=== PATIENT | male | born 1955 | race Caucasian/White ===

== ENCOUNTER → 2019-11-13 13:30 | Outpatient (CLI) | payer OTHER, SELFPAY ==
[2019-11-13 13:47] LABS: Basophils # 0.2 K/mm3 (0-0.2); Basophils % 2.8 % (0.1-2.0); Eosinophils # 0.2 K/mm3 (0.0-0.4); Hematocrit 47.4 % (42.0-52.0); Hemoglobin 14.6 g/dL (14.1-18.0); Lymphocytes # 1.7 K/mm3 (0.7-4.5); Lymphocytes % 24.6 % (10-50); Mean Corpuscular HGB Conc 30.9 g/dL (31.8-35.4); Mean Corpuscular Hemoglobin 30.1 pg (27.0-31.2); Mean Corpuscular Volume 97.6 fl (80-94); Mean Platelet Volume 11.6 fl (7.4-10.4); Monocytes # 0.4 K/mm3 (0.1-1.0); Monocytes % 6.2 % (1.7-9.3); Neutrophils # 4.7 K/mm3 (1.8-7.8); Neutrophils % 66.3 % (37.0-80.0); Platelet Count 259 K/mm3 (142-424); Red Blood Count 4.85 M/mm3 (4.60-6.20); Red Cell Distribution Width 17.6 % (11.5-17.5); White Blood Count 7.1 K/mm3 (4.8-10.8)
[2019-11-13 13:58] LABS: Chloride 100 mmol/L (98-107); Potassium 4.8 mmoL/L (3.5-5.1); Sodium 138 mmol/L (136-145)
[2019-11-13 14:00] LABS: Blood Urea Nitrogen 21 mg/dl (9-20); Estimated Glomerular Filt Rate 85 ml/min (>60); GFR (African American) 103 ML/MIN (>60)
[2019-11-13 14:01] LABS: Alanine Aminotransferase 17 U/L (12-78); Albumin Level 4.3 g/dl (3.5-5.0); Albumin/Globulin Ratio 1.2 (1.1-1.8); Alkaline Phosphatase 50 U/L (38-126); Anion Gap 11.8 mEq/L (5-15); Aspartate Amino Transferase 27 U/L (17-59); Bilirubin,Total 0.5 mg/dl (0.2-1.3); Calcium 9.9 mg/dl (8.4-10.2); Carbon Dioxide 31 mmol/L (22.0-30.0); Chol/HDL Ratio 5.1 (1-3.5); Cholesterol 246 mg/dl (140-200); Globulin 3.6 g/dL (1.3-3.2); Glucose 107 mg/dl (74-100); HDL Cholesterol 48 mg/dl (40-60); Total Protein,Serum 7.9 g/dl (6.3-8.2); Triglycerides 120 mg/dl (30-150); VLDL Cholesterol 24 mg/dL (0-40)
[2019-11-13 14:08] LABS: Microscopic, Urine URINE MICROSCOPIC (MICROSCOPIC)
[2019-11-13 14:18] LABS: 25-OH Vitamin D, Total 30.5 ng/mL (30-100)
[2019-11-13 14:19] LABS: Free T4 (Free Thyroxine) 0.96 ng/dl (0.78-2.19)
[2019-11-13 15:30] LABS: Appearance,Urine CLEAR (Clear); Bilirubin,Urine Negative (Negative); Blood, Urine Negative (Negative); Color,Urine YELLOW (Yellow); Glucose,Urine (UA) Negative (Negative); Ketones,Urine Negative (Negative); Leukocyte Esterase,Urine Negative (Negative); Nitrate,Urine Negative (Negative); Protein,Urine Negative (Negative); Specific Gravity, Urine 1.025 (1.005-1.030); Urobilinogen,Urine 0.2 EU/dl (0.2)
[2019-11-13 15:59] LABS: WBC,Urine Occasional #/hpf (0-3)
[2019-11-13 16:00] LABS: Bacteria,Urine Trace /lpf; Squamous Epithelial Cell,Urine Occasional #/hpf (0-5)
[2019-11-15 12:04] LABS: Hep A Ab, IgM Negative (Negative); Hep A Ab, Total Negative (Negative); Hep B Core Ab, Total Negative (Negative); Rapid Plasma Reagin Ab Titer Non Reactive (NonRea<1:1)
[2019-11-15 12:41] LABS: HIV Screen 4th Generation wRfx Non Reactive (Non Reactive); Hep B Surface Ab, Qual Non Reactive (.); Hepatitis B Surface Antigen Negative (Negative); Hepatitis C Antibody 0.1 s/co ratio (0.0-0.9)
== END ==
PROVIDERS: Visit Provider Emergency Medicine
DX: B19.20 Unspecified viral hepatitis C without hepatic coma (principal); R53.83 Other fatigue; E55.9 Vitamin D deficiency, unspecified
CPT/HCPCS: 80053; 80061; 81001; 82306; 84439; 84443; 85025; 86592; 86703; 86704; 86706; 86708; 87340; 87380; G0432

== ENCOUNTER → 2020-11-24 13:22 | Outpatient (CLI) | payer MEDICARE, SELFPAY ==
[2020-11-24 13:45] LABS: Basophils # 0.1 K/mm3 (0-0.2); Basophils % 0.8 % (0.1-2.0); Eosinophils # 0.3 K/mm3 (0.0-0.4); Eosinophils % 5.4 % (0.1-12.0); Hematocrit 41.5 % (42.0-52.0); Hemoglobin 13.8 g/dL (14.1-18.0); Lymphocytes # 1.4 K/mm3 (0.7-4.5); Lymphocytes % 23.5 % (10-50); Mean Corpuscular HGB Conc 33.3 g/dL (31.8-35.4); Mean Corpuscular Hemoglobin 30.3 pg (27.0-31.2); Mean Corpuscular Volume 91.1 fl (80-94); Mean Platelet Volume 8.4 fl (7.4-10.4); Monocytes # 0.4 K/mm3 (0.1-1.0); Monocytes % 7.6 % (1.7-9.3); Neutrophils # 3.7 K/mm3 (1.8-7.8); Neutrophils % 62.7 % (37.0-80.0); Platelet Count 235 K/mm3 (142-424); Red Blood Count 4.55 M/mm3 (4.60-6.20); White Blood Count 5.8 K/mm3 (4.8-10.8)
[2020-11-24 14:01] LABS: Alanine Aminotransferase 16 U/L (12-78); Albumin Level 4.1 g/dl (3.5-5.0); Albumin/Globulin Ratio 1.3 (1.1-1.8); Alkaline Phosphatase 48 U/L (38-126); Anion Gap 12.3 mEq/L (5-15); Aspartate Amino Transferase 25 U/L (17-59); Bilirubin,Total 0.7 mg/dl (0.2-1.3); Blood Urea Nitrogen 19 mg/dl (9-20); Calcium 9.2 mg/dl (8.4-10.2); Carbon Dioxide 28 mmol/L (22.0-30.0); Chloride 103 mmol/L (98-107); Chol/HDL Ratio 2.9 (1-3.5); Cholesterol 142 mg/dl (140-200); Estimated Glomerular Filt Rate 97 ml/min (>60); GFR (African American) 117 ML/MIN (>60); Globulin 3.1 g/dL (1.3-3.2); Glucose 118 mg/dl (74-100); HDL Cholesterol 49 mg/dl (40-60); Potassium 4.3 mmoL/L (3.5-5.1); Sodium 139 mmol/L (136-145); Total Protein,Serum 7.2 g/dl (6.3-8.2); Triglycerides 53 mg/dl (30-150); VLDL Cholesterol 11 mg/dL (0-40)
[2020-11-24 14:12] LABS: Direct LDL Cholesterol 75.48 mg/dL (100-129)
[2020-11-24 14:17] LABS: T4 (Thyroxine) 6.5 ug/dl (5.53-11.0)
[2020-11-24 14:30] LABS: Prostate Specific Ag Screen 1.3 ng/ml (0.0-4.0)
[2020-11-24 15:06] LABS: Erythrocyte Sedimentation Rate 18 mm/hr (0-20)
== END ==
PROVIDERS: Visit Provider Emergency Medicine
DX: E78.5 Hyperlipidemia, unspecified (principal); K40.90 Unilateral inguinal hernia, without obstruction or gangrene, not specified as recurrent; Z12.5 Encounter for screening for malignant neoplasm of prostate
CPT/HCPCS: 80053; 80061; 84436; 84443; 85025; 85651; G0103

== ENCOUNTER → 2020-12-30 11:12 | Outpatient (CLI) | payer MEDICARE, SELFPAY ==
[2020-12-30 11:38] LABS: Microscopic, Urine URINE MICROSCOPIC (MICROSCOPIC)
--- NOTE | 2020-12-30 12:00 | ECG_ITS ---
APPROVED REPORT Exam: Resting ECG HR:62 bpm ECG Measurements Heart Rate 62 AXES AR 146 P 70 QRSd 82 QRS 40 QT 390 T 72 QTc 395 Conclusion Normal sinus rhythm with sinus arrhythmia Normal ECG Electronically signed by : Bharath Joshi MD 01/01/2021 12:07:15
[2020-12-30 12:26] LABS: Chloride 102 mmol/L (98-107); Sodium 140 mmol/L (136-145)
[2020-12-30 12:27] LABS: Potassium 4.8 mmoL/L (3.5-5.1)
[2020-12-30 12:30] LABS: Anion Gap 10.8 mEq/L (5-15); Blood Urea Nitrogen 25 mg/dl (9-20); Calcium 9.4 mg/dl (8.4-10.2); Carbon Dioxide 32 mmol/L (22.0-30.0); Estimated Glomerular Filt Rate 97 ml/min (>60); GFR (African American) 117 ML/MIN (>60); Glucose 96 mg/dl (74-100)
[2020-12-30 13:14] LABS: Basophils % 0.5 % (0.1-2.0); Eosinophils # 0.2 K/mm3 (0.0-0.4); Eosinophils % 3.3 % (0.1-12.0); Hematocrit 41.9 % (42.0-52.0); Hemoglobin 13.9 g/dL (14.1-18.0); Lymphocytes # 1.5 K/mm3 (0.7-4.5); Lymphocytes % 22.7 % (10-50); Mean Corpuscular HGB Conc 33.1 g/dL (31.8-35.4); Mean Corpuscular Hemoglobin 29.7 pg (27.0-31.2); Mean Corpuscular Volume 89.6 fl (80-94); Mean Platelet Volume 8.1 fl (7.4-10.4); Monocytes # 0.5 K/mm3 (0.1-1.0); Monocytes % 6.8 % (1.7-9.3); Neutrophils # 4.4 K/mm3 (1.8-7.8); Neutrophils % 66.7 % (37.0-80.0); Platelet Count 222 K/mm3 (142-424); Red Blood Count 4.67 M/mm3 (4.60-6.20); Red Cell Distribution Width 13.1 % (11.5-17.5); White Blood Count 6.5 K/mm3 (4.8-10.8)
[2020-12-30 14:38] LABS: Appearance,Urine CLEAR (Clear); Bilirubin,Urine Negative (Negative); Blood, Urine Negative (Negative); Color,Urine YELLOW (Yellow); Glucose,Urine (UA) Negative (Negative); Ketones,Urine Negative (Negative); Leukocyte Esterase,Urine Negative (Negative); Nitrate,Urine Negative (Negative); Protein,Urine Negative (Negative); Urobilinogen,Urine 0.2 EU/dl (0.2)
[2020-12-30 14:57] LABS: Bacteria,Urine Trace /lpf
== END ==
PROVIDERS: PCP Emergency Medicine; Visit Provider Surgery
DX: K40.90 Unilateral inguinal hernia, without obstruction or gangrene, not specified as recurrent (principal); Z01.812 Encounter for preprocedural laboratory examination; Z20.822 Contact with and (suspected) exposure to COVID-19
CPT/HCPCS: 36415; 80048; 81001; 85025; 93005; U0003

== ENCOUNTER 2021-01-01 06:02 | Day surgery (SDC) | payer MEDICARE, SELFPAY ==
[2021-01-01] VITALS (12 sets, daily range): BP systolic 111–147; BP diastolic 73–87; PULSE 65–97; RESP 16–20; TEMP 36.1–43; O2SAT 97–100; BMI 20.7
--- NOTE | 2021-01-01 08:18 | HMH.ANESCL ---
[facility] Anesthesia Checklist - Structural Data Admitted From: Home Planned Operative Procedure/s: r inguinal hernia repair Consent for Planned Operative Procedure(s) Verified: Yes - Additional verifications Anesthesia Reactions: No Hx Blood Transfusions: No Blood Transfusion Reaction: No - Airway Assessment C-Spine Mobility Assessed: Yes TMJ Mobility Assessed: Yes Dentition: Poor Dentition - Neurological Assessment Level of Consciousness: Awake, Alert, Appropriate - Anesthesia Plan Anesthesia Risk discussed: Yes Anesthesia Plan: Verified ASA Class: II Anesthesia Type: General [facility] History I have reviewed the patient's past medical history: Yes Medical History: Reports:: Hyperlipidemia Denies:: Cancer, Diabetes Mellitus Type 1, Diabetes Mellitus Type 2, Internal Pacemaker, MRSA, Seizures *Have you ever received a pneumonia vaccine?: No *Have you received a flu vaccine this season?: No Other Medical History: Denies: Blood Transfusion Reaction Anesthesia experience/problems:: none Other Surgeries: Yes: No Previous Surgery. No: Pacemaker Amputation: No Fractures: No - *Social History Last grade of school completed: Advanced degree Smoking Status: Never smoker Alcohol Intake: never Substance Use Type: denies use *Occupational Status:: retired Housing: house *Travel in the last 8 weeks: None Family Hx:: Diabetes, Stroke
--- NOTE | 2021-01-01 08:46 | HMH.OPNOTE ---
Date of procedure: 01/01/21 Pre-op Diagnosis:: Right inguinal hernia Post-op Diagnosis:: Same Procedure performed:: Open right inguinal hernia repair Surgeon:: Maximino Weber MD CUSTOMER SERVICE AGENT:: Bry Schuler Anesthesia: LMA Estimated blood loss (mL): 15 Operative findings:: Large complex direct defect Severe chronic inflammatory changes/adhesions throughout canal Operative note:: After informed consent was obtained the patient was taken to the operating room and placed in the supine position. General anesthesia with laryngeal mask airway was achieved. After infiltration with local anesthetic an oblique right groin incision was made. The deep subcutaneous tissue was dissected with electrocautery. Dissection was taken through Radhames's fascia to the level of the external aponeurosis. The external aponeurosis was sharply opened to the level of the external ring. The contents of the canal were carefully elevated. Severe chronic inflammatory changes/adhesions were noted. A large direct defect was encountered. The hernia sac was from surrounding tissue with a combination of blunt dissection and electrocautery. An extra-large PerFix plug was secured in the defect with interrupted Ethibond. The PerFix overlay was secured with interrupted Ethibond to the shelving edge inferiorly and fascial margin superiorly. The external aponeurosis was reapproximated with running Vicryl suture. Radhames's fascia was reapproximated in a similar manner. Skin was closed with a running 3-0 Stratafix. Dressings were applied and the patient was transferred to recovery in stable condition after removal of his laryngeal mask airway. Condition: stable Disposition: PACU Specimens:: None Complications:: No immediate
--- NOTE | 2021-01-01 08:55 | P.PN_ITS ---
[facility] Anesthesia Record Part I Intake, IV Amount: 1,700 Estimated blood loss (mL): 10 Urine output (mL): 100 Blood Pressure: 115/84 SaO2: 98 Pulse Rate: 97 Respiratory Rate: 16 Temperature: 97.1 F Patient is:: Drowsy, Stable Stable to PACU at:: 08:50
[2021-01-01 10:31] LABS: Microscopic,Cath URINE MICROSCOPIC (MICROSCOPIC)
[2021-01-01 10:43] LABS: Appearance,Urine/Cath CLEAR (Clear); Bilirubin,Cath Negative (Negative); Blood, Urine/Cath TRACE-L (Negative); Color,Urine/Cath YELLOW (Yellow); Glucose,Urine/Cath (UA) Negative (Negative); Ketones,Urine/Cath Negative (Negative); Leukocyte Esterase,Cath Negative (Negative); Nitrate,Cath Negative (Negative); Protein,Urine/Cath Negative (Negative); Urobilinogen,Cath 0.2 EU/dl (0.2)
[2021-01-01 11:44] LABS: Amorphous Sediment,Ur/Cath 1+ /lpf
--- NOTE | 2021-01-06 07:17 | HMH.ANESII ---
[facility] Anesthesia Record Part II Discharge Time: 09:15 Destination: Surgical Day Care (OP Surgery) PACU nurse assessment reviewed?: Yes Patient Condition:: Good Anesthesia Complications:: None Swallowing reflex intact?: Yes Cyanosis?: No Blood Pressure: 119/79 Pulse Rate: 79 Temperature: 97.1 F Mental Status: Alert & Oriented Pain level:: 0 Nausea and/or vomitting:: None Intake, IV Amount: 0
[2021-01-06 07:18] VITALS: BP 119/79; PULSE 79; TEMP 36.2
== END 2021-01-01 10:53 | disposition home or self-care (01) ==
LOC: OR 06:05
PROVIDERS: PCP Emergency Medicine; Visit Provider Surgery
DX: K40.90 Unilateral inguinal hernia, without obstruction or gangrene, not specified as recurrent (principal); E78.5 Hyperlipidemia, unspecified; Z82.3 Family history of stroke; Z83.3 Family history of diabetes mellitus; Z79.899 Other long term (current) drug therapy
CPT/HCPCS: 49505; 81001; 96374; J2405

== ENCOUNTER → 2021-02-02 11:32 | Outpatient (CLI) | payer MEDICARE, SELFPAY | PROVIDERS: Visit Provider Surgery | DX: Z01.812 Encounter for preprocedural laboratory examination (principal); Z11.52 Encounter for screening for COVID-19; Z12.11 Encounter for screening for malignant neoplasm of colon; Z13.810 Encounter for screening for upper gastrointestinal disorder | CPT/HCPCS: C9803; U0003; U0005 ==

== ENCOUNTER 2021-02-04 10:16 | Day surgery (SDC) | payer MEDICARE, SELFPAY ==
[2021-02-04] VITALS (7 sets, daily range): BP systolic 101–129; BP diastolic 68–83; PULSE 60–89; RESP 18–20; TEMP 36.3–36.6; O2SAT 98–100; BMI 20.7
--- NOTE | 2021-02-04 12:18 | HMH.SCOPE ---
- Procedure: Date: 02/04/21 Patient Date of :: 1955 Procedure Performed:: Esophagogastroduodenoscopy with biopsy Colonoscopy (complete but limited by exceptionally poor bowel preparation) Indications:: Weight loss Performing Provider:: Maximino Weber MD Referring Provider:: . Sedation:: Monitored anesthesia care Procedure:: After informed consent was obtained the patient was taken to the endoscopy suite. Sedation ensued after the patient was transferred to the left lateral decubitus position. Pulse, blood pressure, and oxygen saturation were monitored throughout the procedure. The endoscope was advanced beyond the duodenal bulb. Retroflexion within the gastric lumen was accomplished. The gastroscope was carefully removed. Digital rectal exam revealed no significant abnormality. The colonoscope was placed in position. The entire colon was evaluated. The colonoscope was carefully removed and the patient was transferred to recovery in stable condition. Please see findings and specimens below for detail. Findings:: Gastroesophageal junction at 40 cm Mild patchy gastritis Circular ridge around pyloric margin Bowel preparation exceptionally poor Profound tortuosity Severe lack of relaxation Specimens:: Antral biopsy Biopsy of pyloric ridge tissue Recommendations:: Short-term repeat colonoscopy with extended bowel preparation warranted. He may require barium enema secondary to severe tortuosity. Will consider evaluation by the gastroenterology for possible irritable bowel with constipation (will defer repeat colonoscopy to the gastroenterology service if this is pursued). Complications:: Poor bowel preparation Estimated blood obtained (mL): 1
--- NOTE | 2021-02-04 13:35 | P.PN_ITS ---
[facility] Anesthesia Checklist - Patient Identification Patient Identification: Arm Band, Verbal (Name & ) - Structural Data Admitted From: Home Planned Operative Procedure/s: EGD/Colonoscopy Consent for Planned Operative Procedure(s) Verified: Yes Verified Documents: Surgical Consent - NPO Status Verified Time NPO: 05:00 - Chart Verification Results Verified: None - Additional verifications Anesthesia Reactions: No Hx Blood Transfusions: No Blood Transfusion Reaction: No - Anesthesia Plan Anesthesia Risk discussed: Yes ASA Class: II Anesthesia Type: General [facility] History Medical History: Reports:: Hyperlipidemia Denies:: Cancer, Diabetes Mellitus Type 1, Diabetes Mellitus Type 2, Internal Pacemaker, MRSA, Seizures *Have you ever received a pneumonia vaccine?: No *Have you received a flu vaccine this season?: No Other Medical History: Denies: Blood Transfusion Reaction Anesthesia experience/problems:: none Other Surgeries: Yes: No Previous Surgery, Hernia Repair. No: Pacemaker Amputation: No Fractures: No - *Social History Last grade of school completed: High school graduate Smoking Status: Never smoker Alcohol Intake: never Substance Use Type: denies use *Occupational Status:: employed Housing: house *Travel in the last 8 weeks: None Family Hx:: No significant family history
== END 2021-02-04 13:15 | disposition home or self-care (01) ==
LOC: OUTP 10:17
PROVIDERS: PCP Emergency Medicine; Visit Provider Surgery
PROC: 0DJ08ZZ Inspection of Upper Intestinal Tract, Via Natural or Artificial Opening Endoscopic (ICD-10-PCS; CPT 43235; principal; 2021-02-04 11:30)
DX: K29.60 Other gastritis without bleeding (principal); K56.2 Volvulus; K31.9 Disease of stomach and duodenum, unspecified; K58.9 Irritable bowel syndrome, unspecified; R63.4 Abnormal weight loss; E78.5 Hyperlipidemia, unspecified; Z79.899 Other long term (current) drug therapy
CPT/HCPCS: 43239; 45378; 88305

== ENCOUNTER → 2021-03-09 09:43 | Outpatient (CLI) | payer MEDICARE, SELFPAY ==
--- NOTE | 2021-03-09 09:43 | FL_ITS ---
PROCEDURE: FL BARIUM ENEMA CLINICAL INDICATION: weight loss, poor bowel prep for colon COMPARISON: No exams were available for comparison FINDINGS: The rectum is diffusely dilated. There is a dilated sigmoid colon with multiple redundant loops. there is residual stool in the proximal redundant sigmoid colon and the distal descending colon. There is also probably some residual stool coating the transverse colon. There are redundant loops of descending colon transverse colon and ascending colon. The ascending and descending colon is also diffusely dilated. Despite prolonged attempts with a very large volume of contrast and water, due to the diffusely dilated colon, and the fact that all the redundant loops of markedly dilated sigmoid colon were obscuring the right lower quadrant, the decision was made to terminate the procedure as it would not have been possible to visualize the terminal ileum due to the angles of the overlapping redundant sigmoid colon. IMPRESSION: Limited study due to residual stool in the transverse and descending colon and markedly dilated redundant loops of sigmoid obscuring the right lower quadrant. The entire colon is markedly dilated with extensive loops of redundant colon. Due to incomplete prep and incomplete visualization, small colonic neoplasms cannot be entirely excluded based on this examination and the cecum and terminal ileum were incompletely evaluated. If there is persistent clinical concern for colonic neoplasm, further evaluation can be performed with CT colonography. Dictated by: Sonali Grimes MD 03/09/2021 15:20 Sonali Grimes MD in [place] 03/09/2021 15:20
== END ==
PROVIDERS: PCP Emergency Medicine; Visit Provider Surgery
DX: R63.4 Abnormal weight loss (principal); Z68.21 Body mass index [BMI] 21.0-21.9, adult
CPT/HCPCS: 74270

== ENCOUNTER → 2021-11-08 14:18 | Outpatient (CLI) | payer MEDICARE, SELFPAY ==
[2021-11-08 13:27] LABS: Alanine Aminotransferase 24 U/L (12-78); Albumin/Globulin Ratio 1.2 (1.1-1.8); Alkaline Phosphatase 52 U/L (38-126); Anion Gap 12.2 mEq/L (5-15); Aspartate Amino Transferase 35 U/L (17-59); Bilirubin,Total 0.3 mg/dl (0.2-1.3); Blood Urea Nitrogen 18 mg/dl (9-20); Calcium 9.4 mg/dl (8.4-10.2); Carbon Dioxide 29 mmol/L (22.0-30.0); Chloride 102 mmol/L (98-107); Chol/HDL Ratio 3.4 (1-3.5); Cholesterol 153 mg/dl (140-200); Estimated Glomerular Filt Rate 113 ml/min (>60); GFR (African American) 137 ML/MIN (>60); Globulin 3.4 g/dL (1.3-3.2); Glucose 115 mg/dl (74-100); HDL Cholesterol 45 mg/dl (40-60); Potassium 4.2 mmoL/L (3.5-5.1); Sodium 139 mmol/L (136-145); Total Protein,Serum 7.4 g/dl (6.3-8.2); Triglycerides 53 mg/dl (30-150); VLDL Cholesterol 11 mg/dL (0-40)
[2021-11-08 13:28] LABS: Basophils # 0.1 K/mm3 (0-0.2); Eosinophils # 0.3 K/mm3 (0.0-0.4); Eosinophils % 3.7 % (0.1-12.0); Hemoglobin 14.3 g/dL (14.1-18.0); Lymphocytes # 1.3 K/mm3 (0.7-4.5); Lymphocytes % 18.3 % (10-50); Mean Corpuscular HGB Conc 31.7 g/dL (31.8-35.4); Mean Corpuscular Volume 97.8 fl (80-94); Mean Platelet Volume 8.9 fl (7.4-10.4); Monocytes # 0.5 K/mm3 (0.1-1.0); Monocytes % 7.2 % (1.7-9.3); Neutrophils # 4.9 K/mm3 (1.8-7.8); Neutrophils % 69.7 % (37.0-80.0); Platelet Count 269 K/mm3 (142-424); Red Cell Distribution Width 13.2 % (11.5-17.5)
[2021-11-08 13:38] LABS: Direct LDL Cholesterol 78.37 mg/dL (100-129)
[2021-11-08 13:44] LABS: 25-OH Vitamin D, Total 31.1 ng/mL (30-100)
[2021-11-08 13:58] LABS: Thyroid Stimulating Hormone 0.74 uIU/mL (0.465-4.68)
[2021-11-08 14:09] LABS: Hemoglobin A1C 5.6 % (4.0-6.0)
== END ==
PROVIDERS: PCP Emergency Medicine; Visit Provider Emergency Medicine
DX: E78.5 Hyperlipidemia, unspecified (principal); R53.83 Other fatigue; E11.9 Type 2 diabetes mellitus without complications; E55.9 Vitamin D deficiency, unspecified
CPT/HCPCS: 80053; 80061; 82306; 83036; 84439; 84443; 85025

== ENCOUNTER → 2021-11-12 13:42 | Outpatient (CLI) | payer MEDICARE, SELFPAY ==
[2021-11-12 14:19] LABS: Prostate Specific Ag Screen 1.8 ng/ml (0.0-4.0)
== END ==
PROVIDERS: PCP Emergency Medicine; Visit Provider Emergency Medicine
DX: Z12.5 Encounter for screening for malignant neoplasm of prostate (principal)
CPT/HCPCS: G0103

== ENCOUNTER 2021-12-15 14:07 | Emergency (ER) | payer MEDICARE, SELFPAY ==
[2021-12-15 14:20] VITALS: BP 144/79; PULSE 91; RESP 16; TEMP 37.1; O2SAT 95; BMI 23.1
--- NOTE | 2021-12-15 14:31 | HMH.EDUTC ---
[facility] Disposition Clinical Impression: Viral syndrome Disposition: Home, Self-Care Condition on Discharge: Good Instructions: DI for COVID-19 (Suspected or Confirmed ), Preventing the Spread of Coronavirus Discharge Instructions Additional Instructions: Drink plenty of fluids. Take tylenol or ibuprofen for pain or fever. Take the medications as directed. Follow up with your regular doctor. GO TO THE ER FOR ANY WORSENING SYMPTOMS Quarantine until you know the results of your covid-19 test. Notify your school or workplace of your results and follow their instructions regarding return to work/school. Prescriptions: Ondansetron [Zofran 4mg ODT] 4 mg PO Q8HP PRN #12 tab PRN Reason: Nausea Transmission Status: Received by [id number] Referrals: Jose Faulkner MD [Primary Care Provider] - Time of Disposition: 14:47 Medical Decision Making - Medical Records Medical records reviewed: Yes: I reviewed the patient's medical records. - Pedro Inquiry Pt receiving controlled substance: No Vital Signs: 12/15/21 14:20 12/15/21 14:54 Temperature 98.8 F 98.8 F Temperature Source Oral Pulse Rate 91 H Pulse Rate [Left] 91 H Respiratory Rate 16 16 Blood Pressure 144/79 H Blood Pressure [Right Arm] 144/79 H Blood Pressure Mean [Right Arm] 100 02 Sat by Pulse Oximetry 95 - Lab Data Lab results reviewed: Yes: I reviewed the patient's lab results. [facility] HPI - General Stated complaint: Vomiting; diarreah Time Seen by Provider: 12/15/21 14:31 Mode of Arrival: Ambulatory Source of Information: Patient Limitations: No Limitations Description of Symptoms (Recalled from Triage Doc. by RN): patient comes in for nausea and diarrhea. patient states that he has had been sick previously. it went away and come back. HEENT Symptoms (Recalled from RN notes): No Resp Symptoms (Recalled from RN notes): No Skin Symptoms (Recalled from RN notes): No MS Symptoms (Recalled from RN notes): No Functional Status (Recalled from RN notes): n/a - History of Present Illness Provider Complaint: He states that 2 days ago he had an episode of n/v/d. His symptoms are better since yesterday, but he still feels bad. he denies any fever/chills/body aches. He denies any chest pain or shortness of breath. - Related Data Previous Rx's Medication Instructions Recorded atorvastatin 10 mg tablet 10 mg PO HS #90 tab 11/08/21 clindamycin HCl 300 mg capsule 300 mg PO TID #30 cap 11/08/21 mupirocin 2 % topical ointment 1 applic TP BID #22 g 11/08/21 Ondansetron [Zofran 4mg ODT] 4 mg PO Q8HP PRN #12 tab 12/15/21 Allergies Allergy/AdvReac Type Severity Reaction Status Date / Time No Known Allergies Allergy Verified 11/08/21 09:28 - Worker's Comp Is this a Worker's Comp case?: No [facility] History - Hepatitis A Screen Attestation statement:: This patient has been screened for Hepatitis A risk factors. I have reviewed the patient's past medical history: Yes Medical History: Reports:: Hyperlipidemia Denies:: Cancer, Diabetes Mellitus Type 1, Diabetes Mellitus Type 2, Internal Pacemaker, MRSA, Seizures Other Medical History: Denies: Blood Transfusion Reaction Other Surgeries: Yes: No Previous Surgery, Colonoscopy, Hernia Repair, Other (Barium enema). No: Pacemaker Amputation: No Fractures: No - Social History Smoking Status: Never smoker Alcohol Intake: never Substance Use Type: denies use Occupational Status: employed Housing: house Family Hx:: No significant family history ROS Obtained: Yes All systems reviewed & no additional complaints - Constitutional Constitutional: Reports as per HPI - Eyes Eyes: Denies eye discharge - ENT Ears, Nose, Mouth, and Throat: Reports as per HPI - Cardiovascular Cardiovascular: Denies system reviewed and no additional complaints, except as docu - Respiratory Respiratory: Denies chest congestion, Reports cough Physical Exam - Gener
[2021-12-15 14:54] VITALS: BP 144/79; PULSE 91; RESP 16; TEMP 37.1
== END 2021-12-15 14:59 | disposition home or self-care (01) ==
PROVIDERS: Emergency Provider Nurse Practitioner Family; PCP Emergency Medicine
DX: B34.9 Viral infection, unspecified (principal); R11.2 Nausea with vomiting, unspecified; R19.7 Diarrhea, unspecified
CPT/HCPCS: 99212; C9803; G0463; U0003; U0005

== ENCOUNTER → 2022-02-21 10:02 | Outpatient (CLI) | payer MEDICARE, SELFPAY ==
--- NOTE | 2022-02-21 10:15 | ECG_ITS ---
APPROVED REPORT Exam: Resting ECG HR:75 bpm ECG Measurements Heart Rate 75 AXES HI 170 P 85 QRSd 82 QRS 84 QT 360 T 86 QTc 389 Conclusion SINUS RHYTHM NORMAL ECG UNCONFIRMED REPORT Electronically signed by : Bharath Joshi MD 02/21/2022 17:57:04
[2022-02-21 11:32] LABS: Basophils # 0.1 K/mm3 (0-0.2); Basophils % 0.8 % (0.1-2.0); Eosinophils # 0.3 K/mm3 (0.0-0.4); Eosinophils % 4.2 % (0.1-12.0); Hematocrit 43.3 % (42.0-52.0); Lymphocytes # 1.5 K/mm3 (0.7-4.5); Lymphocytes % 21.3 % (10-50); Mean Corpuscular HGB Conc 32.4 g/dL (31.8-35.4); Mean Corpuscular Hemoglobin 30.5 pg (27.0-31.2); Mean Corpuscular Volume 94.2 fl (80-94); Mean Platelet Volume 7.5 fl (7.4-10.4); Monocytes # 0.5 K/mm3 (0.1-1.0); Neutrophils # 4.5 K/mm3 (1.8-7.8); Neutrophils % 66.7 % (37.0-80.0); Platelet Count 257 K/mm3 (142-424); Red Cell Distribution Width 13.3 % (11.5-17.5); White Blood Count 6.8 K/mm3 (4.8-10.8)
[2022-02-21 11:59] LABS: Chloride 100 mmol/L (98-107); Potassium 4.6 mmoL/L (3.5-5.1); Sodium 142 mmol/L (136-145)
[2022-02-21 12:02] LABS: Anion Gap 15.6 mEq/L (5-15); Blood Urea Nitrogen 20 mg/dl (9-20); Calcium 9.2 mg/dl (8.4-10.2); Carbon Dioxide 31 mmol/L (22.0-30.0); Estimated Glomerular Filt Rate 113 ml/min (>60); GFR (African American) 137 ML/MIN (>60); Glucose 105 mg/dl (74-100)
== END ==
PROVIDERS: PCP Emergency Medicine; Visit Provider Surgery
DX: L98.9 Disorder of the skin and subcutaneous tissue, unspecified (principal); E78.5 Hyperlipidemia, unspecified; Z01.818 Encounter for other preprocedural examination
CPT/HCPCS: 36415; 80048; 85025; 93005

== ENCOUNTER 2022-02-24 07:43 | Day surgery (SDC) | payer MEDICARE, SELFPAY ==
[2022-02-22 08:43] VITALS: BMI 23.4
[2022-02-24 08:25] VITALS: BP 136/82; PULSE 86; RESP 17; TEMP 36.4; O2SAT 99
--- NOTE | 2022-02-24 10:34 | P.PN_ITS ---
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 current occupational exposures/hazards: No caffeine: Yes [facility] Anesthesia Checklist Patient Identification Patient Identification: Verbal (Name & ) Structural Data Admitted From: Home Planned Operative Procedure/s: excision neoplsm r hand Consent for Planned Operative Procedure(s) Verified: Yes Additional verifications Anesthesia Reactions: No Hx Blood Transfusions: No Blood Transfusion Reaction: No Airway Assessment C-Spine Mobility Assessed: Yes TMJ Mobility Assessed: Yes Dentition: Poor Dentition Neurological Assessment Level of Consciousness: Awake, Alert and Appropriate Anesthesia Plan Anesthesia Risk discussed: Yes Anesthesia Plan: Verified ASA Class: III Anesthesia Type: MAC
--- NOTE | 2022-02-24 10:56 | P.OP_ITS ---
Date of procedure: 02/24/22 Pre-op Diagnosis:: 2.5 cm skin lesion along dorsal surface of right hand Post-op Diagnosis:: Same Procedure performed:: Excision of 2.5 cm right hand skin lesion Surgeon:: Maximino Weber MD LEAD TECHNICAL ARCHITECT:: Bry Schuler Anesthesia: MAC and local Estimated blood loss (mL): 10 Operative findings:: Lesion excised with 1 mm margin Excision depth -subcutaneous tissue Operative note:: After informed consent was obtained the patient was taken to the operating room and placed in the supine position. Monitored anesthesia care ensued his right hand was prepped and draped in a sterile fashion. After infiltration local anesthetic an elliptical incision was made around the lesion obtaining a 1 mm margin. A combination of sharp dissection and electrocautery was utilized to transect through the deeper subcutaneous tissue. The lesion was excised in toto and passed off for pathologic evaluation after being marked for margin with dyed and non-dyed suture. Dyed suture was utilized to raj the proximal and distal margins (short proximal/long distal). The non-dyed suture was utilized to raj the thenar margin. Electrocautery was utilized to achieve hemostasis. Skin was reapproximated with interrupted 4-0 nylon in an interrupted/mattress fashion. Dressings were applied and the patient was transferred to recovery in stable condition. Condition: stable Disposition: PACU Complications:: No immediate
[2022-02-24 11:00] VITALS: BP 97/73; PULSE 83; RESP 17; TEMP 36.4; O2SAT 96
[2022-02-24 11:10] VITALS: BP 124/84; PULSE 75; RESP 18; O2SAT 96
[2022-02-24 11:20] VITALS: BP 119/87; PULSE 73; RESP 18; O2SAT 94
[2022-02-24 11:30] VITALS: BP 133/80; PULSE 80; RESP 18; O2SAT 96
== END 2022-02-24 11:30 | disposition home or self-care (01) ==
PROVIDERS: PCP Emergency Medicine; Visit Provider Surgery
DX: D04.61 Carcinoma in situ of skin of right upper limb, including shoulder (principal)
CPT/HCPCS: 11626; 88305; 96374

== ENCOUNTER 2022-04-15 07:41 | Day surgery (SDC) | payer MEDICARE, SELFPAY ==
[2022-04-11 11:26] VITALS: BMI 24.0
[2022-04-15 08:01] VITALS: BP 147/84; PULSE 79; RESP 18; TEMP 37.2; O2SAT 98
--- NOTE | 2022-04-15 08:39 | EXP.ANES.CKL ---
[facility] Disclaimer: The information contained in this section may have been updated after the patient was seen, as this information can be updated by other users. 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 current occupational exposures/hazards: No caffeine: Yes [facility] Anesthesia Checklist Patient Identification Patient Identification: Arm Band and Verbal (Name & ) Structural Data Admitted From: Home Planned Operative Procedure/s: Excision lesion Consent for Planned Operative Procedure(s) Verified: Yes NPO Status Verified Time NPO: 00:00 Chart Verification Results Verified: CBC and BMP Additional verifications Anesthesia Reactions: No Hx Blood Transfusions: No Blood Transfusion Reaction: No Airway Assessment C-Spine Mobility Assessed: Yes Dentition: Poor Dentition Neurological Assessment Level of Consciousness: Awake Hx Seizures: No Numbness or tingling in extremities: No Anesthesia Plan Anesthesia Risk discussed: Yes Anesthesia Plan: Verified ASA Class: II Anesthesia Type: MAC
--- NOTE | 2022-04-15 09:33 | EXP.OP.NOTE ---
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 Monitored anesthesia care ensued his right hand was prepped and draped in a sterile fashion.? After infiltration local anesthetic an elliptical incision was made around the scar from prior excision. The excision included healthy-appearing tissue along the proximal and distal margin. A combination of sharp dissection and electrocautery was utilized to transect through the deeper subcutaneous tissue.? The lesion was excised in toto and passed off for pathologic evaluation after being marked for margin with dyed and non-dyed suture.? Dyed suture was utilized to raj the proximal and distal margins (short proximal/long distal).? The non-dyed suture was utilized to raj the thenar margin.? Electrocautery was utilized to achieve hemostasis.? Skin was reapproximated with interrupted 4-0 nylon in an interrupted/mattress fashion.? Dressings were applied and the patient was transferred to recovery in stable condition. Condition: stable Disposition: PACU Specimens:: Right hand squamous cell carcinoma in situ reexcision Complications:: No immediate
[2022-04-15 09:41] VITALS: BP 102/61; PULSE 89; RESP 16; TEMP 37; O2SAT 99
[2022-04-15 09:51] VITALS: BP 98/62; PULSE 77; RESP 17; O2SAT 98
[2022-04-15 10:01] VITALS: BP 115/83; PULSE 85; RESP 17; O2SAT 99
[2022-04-15 10:11] VITALS: BP 115/75; PULSE 85; RESP 17; O2SAT 100
== END 2022-04-15 10:14 | disposition home or self-care (01) ==
PROVIDERS: PCP Emergency Medicine; Visit Provider Surgery
DX: R23.9 Unspecified skin changes (principal); L90.5 Scar conditions and fibrosis of skin; Z85.828 Personal history of other malignant neoplasm of skin; Z79.899 Other long term (current) drug therapy
CPT/HCPCS: 11424; 88305; 96374

== ENCOUNTER → 2023-02-20 13:32 | Outpatient (CLI) | payer MEDICARE, SELFPAY ==
[2023-02-20 12:46] LABS: Hematocrit 44.9 % (42.0-52.0); Hemoglobin 14.6 g/dL (14.1-18.0); Mean Corpuscular HGB Conc 32.6 g/dL (31.8-35.4); Mean Corpuscular Hemoglobin 30.3 pg (27.0-31.2); Mean Corpuscular Volume 92.9 fl (80-94); Platelet Count 254 K/mm3 (142-424); Red Blood Count 4.83 M/mm3 (4.60-6.20); Red Cell Distribution Width 12.9 % (11.5-17.5); White Blood Count 6.5 K/mm3 (4.8-10.8)
[2023-02-20 12:47] LABS: Basophils % 0.5 % (0.1-2.0); Eosinophils # 0.4 K/mm3 (0.0-0.4); Eosinophils % 6.1 % (0.1-12.0); Lymphocytes # 1.3 K/mm3 (0.7-4.5); Lymphocytes % 20.1 % (10-50); Mean Platelet Volume 8.4 fl (7.4-10.4); Monocytes # 0.5 K/mm3 (0.1-1.0); Monocytes % 7.9 % (1.7-9.3); Neutrophils # 4.1 K/mm3 (1.8-7.8); Neutrophils % 63.4 % (37.0-80.0)
[2023-02-20 12:55] LABS: Alanine Aminotransferase 22 U/L (12-78); Albumin Level 4.5 g/dl (3.5-5.0); Albumin/Globulin Ratio 1.1 (1.1-1.8); Alkaline Phosphatase 50 U/L (38-126); Anion Gap 12.6 mEq/L (5-15); Aspartate Amino Transferase 30 U/L (17-59); Bilirubin,Total 0.6 mg/dl (0.2-1.3); Blood Urea Nitrogen 18 mg/dl (9-20); Calcium 9.3 mg/dl (8.4-10.2); Carbon Dioxide 28 mmol/L (22.0-30.0); Chloride 103 mmol/L (98-107); Chol/HDL Ratio 4.5 (1-3.5); Cholesterol 174 mg/dl (140-200); Estimated Glomerular Filt Rate 96 ml/min (>60); GFR (African American) 117 ML/MIN (>60); Glucose 113 mg/dl (74-100); HDL Cholesterol 39 mg/dl (40-60); Potassium 4.6 mmoL/L (3.5-5.1); Sodium 139 mmol/L (136-145); Total Protein,Serum 8.5 g/dl (6.3-8.2); Triglycerides 56 mg/dl (30-150); VLDL Cholesterol 11 mg/dL (0-40)
[2023-02-20 13:09] LABS: 25-OH Vitamin D, Total 29.4 ng/mL (30-100); Direct LDL Cholesterol 100.97 mg/dL (100-129)
[2023-02-20 13:17] LABS: T4 (Thyroxine) 7.4 ug/dl (5.53-11.0)
[2023-02-20 13:31] LABS: Prostate Specific Ag Screen 1.4 ng/ml (0.0-4.0); Thyroid Stimulating Hormone 0.53 uIU/mL (0.465-4.68)
== END ==
PROVIDERS: PCP Emergency Medicine; Visit Provider Emergency Medicine
DX: E78.5 Hyperlipidemia, unspecified (principal); Z12.5 Encounter for screening for malignant neoplasm of prostate; E55.9 Vitamin D deficiency, unspecified; I10 Essential (primary) hypertension
CPT/HCPCS: 80053; 80061; 82306; 84436; 84443; 85025; G0103

== ENCOUNTER 2023-03-13 13:57 | Emergency (ER) | payer MEDICARE, SELFPAY ==
--- NOTE | 2023-03-13 14:03 | ECG_ITS ---
APPROVED REPORT Exam: Resting ECG HR:82 bpm ECG Measurements Heart Rate 82 AXES CA 182 P 76 QRSd 104 QRS 78 QT 352 T 77 QTc 391 Conclusion SINUS RHYTHM LOW QRS VOLTAGE IN PRECORDIAL LEADS [QRS DEFLECTION < 1.0 mV IN CHEST LEADS] BORDERLINE ECG UNCONFIRMED REPORT Electronically signed by : Bharath Joshi MD 03/13/2023 20:17:31
[2023-03-13 14:18] VITALS: BP 143/83; PULSE 87; RESP 15; TEMP 36.6; O2SAT 100; BMI 24.3
[2023-03-13 14:30] VITALS: BP 141/87; PULSE 84; RESP 13; O2SAT 99
--- NOTE | 2023-03-13 14:35 | CT_ITS ---
FINAL REPORT TECHNIQUE: Thin section axial CT with IV contrast supplemented with multiplanar reconstruction under CT angiogram protocol. 3-D reconstructions were performed. This study was performed with techniques to keep radiation doses as low as reasonably achievable (ALARA). Individualized dose reduction techniques using automated exposure control or adjustment of mA and/or kV according to the patient''s size were employed. CLINICAL HISTORY: sudden onset off balance, dizzy. poss stroke FINDINGS: The distal vertebral, basilar and distal internal carotid arteries have an unremarkable appearance. No aneurysm is seen. Major intracranial vessels are patent without significant stenosis. IMPRESSION: No significant stenosis or occlusion. Reviewed, Interpreted and Dictated by Jaswinder Mclean III, MD Transcribed by Helen Mcgee Authenticated and [facility]
--- NOTE | 2023-03-13 14:35 | XR_ITS ---
FINAL REPORT TECHNIQUE: Single view chest CLINICAL HISTORY: sudden onset off balance, dizzy, stroke workup FINDINGS: A single view of the chest was obtained. The heart and mediastinum are within normal limits. There is moderate fibrosis/scarring. The lungs are otherwise clear. There is no pneumothorax. Osseous structures are unremarkable. IMPRESSION: No acute cardiopulmonary process. Reviewed, Interpreted and Dictated by Jaswinder Mclean III, MD Transcribed by Helen Mcgee Authenticated and [facility]
--- NOTE | 2023-03-13 14:35 | CT_ITS ---
FINAL REPORT CLINICAL HISTORY: sudden onset off balance, dizzy, poss stroke FINDINGS: Axial images of the head were obtained without contrast. Coronal reformatted images were also obtained. This study was performed with techniques to keep radiation doses as low as reasonably achievable (ALARA). Individualized dose reduction techniques using automated exposure control or adjustment of mA and/or kV according to the patient''s size were employed. There is generalized age-appropriate atrophy. Periventricular low-attenuation areas are seen consistent with mild chronic ischemic changes. There is no evidence of intracranial hemorrhage or mass. There is no evidence of acute infarct. There is no evidence of shift of the midline structures. No skull abnormality is seen on the bone window images. IMPRESSION: Atrophy and mild periventricular chronic ischemic changes. No acute intracranial abnormality identified. Reviewed, Interpreted and Dictated by Jaswinder Mclean III, MD Transcribed by Helen Mcgee Authenticated and [facility]
--- NOTE | 2023-03-13 14:35 | CT_ITS ---
FINAL REPORT CLINICAL HISTORY: sudden onset off balance, dizzy. poss stroke FINDINGS: CTA NECK Thin section axial CT with contrast with multiplanar reconstruction NASCET criteria and technique was utilized during interpretation. Aortic arch: Arch shows no significant narrowing. Great vessel origins are widely patent . Right carotid: No significant stenosis is seen of the cervical common or internal carotid artery . Left carotid: No significant stenosis is seen of the cervical common or internal carotid artery . Vertebrals: Left vertebral artery is dominant. No significant stenosis is present . Scarring/fibrosis is seen at the lung apices. IMPRESSION: No significant stenosis or occlusion. Reviewed, Interpreted and Dictated by Jaswinder Mclean III, MD Transcribed by Helen Mcgee Authenticated and [facility]
--- NOTE | 2023-03-13 14:35 | PC.NURSE ---
stroke protocol called on pt. rad at bedside to get pt
[2023-03-13 14:42] LABS: POC Glucose,Bedside 149 (70-110)
[2023-03-13 14:47] LABS: Basophils % 0.4 % (0.1-2.0); Eosinophils # 0.4 K/mm3 (0.0-0.4); Eosinophils % 4.7 % (0.1-12.0); Hematocrit 41.4 % (42.0-52.0); Hemoglobin 14.5 g/dL (14.1-18.0); Lymphocytes # 1.8 K/mm3 (0.7-4.5); Lymphocytes % 22.2 % (10-50); Mean Corpuscular Hemoglobin 31.8 pg (27.0-31.2); Mean Platelet Volume 8.1 fl (7.4-10.4); Monocytes # 0.6 K/mm3 (0.1-1.0); Monocytes % 7.9 % (1.7-9.3); Neutrophils # 5.3 K/mm3 (1.8-7.8); Neutrophils % 64.9 % (37.0-80.0); Platelet Count 250 K/mm3 (142-424); Red Blood Count 4.55 M/mm3 (4.60-6.20); Red Cell Distribution Width 12.9 % (11.5-17.5); White Blood Count 8.2 K/mm3 (4.8-10.8)
[2023-03-13 14:55] LABS: INR 1.04 (0.9-1.1); Prothrombin Time 11.2 seconds (10.1-12.5)
[2023-03-13 14:57] LABS: Alanine Aminotransferase 26 U/L (12-78); Albumin Level 4.6 g/dl (3.5-5.0); Albumin/Globulin Ratio 1.2 (1.1-1.8); Alkaline Phosphatase 51 U/L (38-126); Anion Gap 13.1 mEq/L (5-15); Aspartate Amino Transferase 42 U/L (17-59); Bilirubin,Total 0.6 mg/dl (0.2-1.3); Blood Urea Nitrogen 20 mg/dl (9-20); Calcium 9.2 mg/dl (8.4-10.2); Carbon Dioxide 29 mmol/L (22.0-30.0); Chloride 97 mmol/L (98-107); Creatinine Clearance Estimated 73 mL/min (50-200); Estimated Glomerular Filt Rate 96 ml/min (>60); GFR (African American) 116 ML/MIN (>60); Globulin 3.9 g/dL (1.3-3.2); Glucose 117 mg/dl (74-100); Potassium 4.1 mmoL/L (3.5-5.1); Sodium 135 mmol/L (136-145); Total Protein,Serum 8.5 g/dl (6.3-8.2)
[2023-03-13 15:00] VITALS: BP 133/81; PULSE 94; RESP 18; O2SAT 99
[2023-03-13 15:09] LABS: Troponin I < 0.01 ng/ml (0.00-0.034)
[2023-03-13 15:30] VITALS: BP 123/83; PULSE 89; RESP 19; O2SAT 99
--- NOTE | 2023-03-13 15:40 | HMH.EDGENADL ---
Discharge Plan Disposition Patient Disposition: Still a Patient Condition: Good Prescriptions Prescriptions: No Action atorvastatin 10 mg tablet See Rx Instructions .ROUTE .COMPLEX Qty: 90 1RF Dose Instruction: TAKE 1 TABLET AT BEDTIME FOR CHOLESTEROL Rx Instructions: TAKE 1 TABLET AT BEDTIME FOR CHOLESTEROL lisinopril 10 mg tablet 10 mg PO DAILY Qty: 90 1RF Referrals Follow up/Referrals: Jose Faulkner MD [Primary Care Provider] - See instructions Han Cobos MD [Staff Physician] - See instructions Activity Restrictions/Add. Instructions Additional Instructions/Restrictions: Your emergency evaluation was unremarkable today. Your serial neurologic exams were normal I would advise that you follow-up with Dr. Cobos for further comprehensive evaluation of your heart. Return with any worsening neurologic symptoms or any ongoing concerns. Clinical Impressions Clinical Impression: Dizziness Discharge ED Provider: Luci Hendrix General Adult HPI <Luci Hendrix DO - Last Filed: 03/13/23 15:46> General Chief complaint: Dizziness Stated complaint: off balance,dizzy,weakness Time Seen by Provider: 03/13/23 14:22 Mode of Arrival: Ambulatory Source of Information: Patient Limitations: No Limitations Description of Symptoms (Recalled from ER Triage Doc. by RN): 68 yo M presents to ED with c/o dizziness when he stands up. pt reports that he was getting up from sitting in the chair and he got extremely dizzy. pt reports that it has continued since getting to the ER. History of Present Illness HPI narrative: This patient is a 68-year-old male with a history of hypertension, hyperlipidemia, and cardiac murmur presenting to the emergency department for evaluation with concern for dizziness upon standing. He reports that he feels off balance and feels like he is falling to the side. He has trouble putting weight on his legs because it feels like they are giving out from underneath him. He denies any sensation of the room spinning, he describes it as more of a lightheadedness and a funny feeling in his head. He states that it feels like his head is floating. He denies experiencing anything like this in the past. Last known normal was around noon. This started acutely. He was well prior to this without any concerns or other symptoms. He denies any numbness, tingling, vision changes, unilateral weakness, or other concerns. He states he is awaiting an outpatient echocardiogram for a new diagnosis of a murmur. He denies any use of anticoagulation. On medical record review, he takes atorvastatin and lisinopril. Related Data Previous Rx's Medication Instructions Recorded atorvastatin 10 mg tablet See Rx Instructions .Route 01/30/23 .COMPLEX #90 tabs lisinopril 10 mg tablet 10 mg PO DAILY #90 tabs 01/30/23 Allergies Allergy/AdvReac Type Severity Reaction Status Date / Time No Known Allergies Allergy Verified 02/20/23 08:59 PFS <Luci Hendrix DO - Last Filed: 03/13/23 15:46> [facility] Disclaimer: The information contained in this section may have been updated after the patient was seen, as this information can be updated by other users. Medical History History of anemia Hyperlipidemia Hypertension Skin cancer Surgical History H/O hernia repair History of excision of lesion Family History Father Family history of myocardial infarction Mother Family history of diabetes mellitus type II Family history of stroke Other Family history of cancer Social History Smoking Status: Never smoker second hand exposure: Yes alcohol intake: never substance use type: denies use current occupational status: employed Travel in the last 8 weeks: None housing:
[2023-03-13 15:44] LABS: Microscopic, Urine URINE MICROSCOPIC (MICROSCOPIC)
[2023-03-13 15:46] LABS: Appearance,Urine CLEAR (Clear); Bilirubin,Urine Negative (Negative); Blood, Urine Negative (Negative); Color,Urine YELLOW (Yellow); Glucose,Urine (UA) Negative (Negative); Ketones,Urine Negative (Negative); Leukocyte Esterase,Urine Negative (Negative); Nitrate,Urine Negative (Negative); Protein,Urine Negative (Negative); Urobilinogen,Urine 0.2 EU/dl (0.2)
[2023-03-13 16:00] VITALS: BP 141/87; PULSE 98; RESP 17; O2SAT 99
[2023-03-13 16:10] LABS: RBC,Urine Occasional #/hpf (0-3); Squamous Epithelial Cell,Urine Occasional #/hpf (0-5)
[2023-03-13 16:50] VITALS: BP 141/87; PULSE 98; RESP 19; TEMP 36.6
== END 2023-03-13 16:50 | disposition home or self-care (01) ==
PROVIDERS: Emergency Provider Emergency Medicine; PCP Emergency Medicine
DX: R42 Dizziness and giddiness (principal); I10 Essential (primary) hypertension; E78.5 Hyperlipidemia, unspecified; R01.1 Cardiac murmur, unspecified; R53.1 Weakness
CPT/HCPCS: 70450; 70496; 70498; 71045; 80053; 81001; 82962; 84484; 85025; 85610; 85730; 93005; 99285; Q9967

== ENCOUNTER → 2023-03-31 13:25 | Outpatient (CLI) | payer MEDICARE, SELFPAY ==
--- NOTE | 2023-03-31 14:53 | CA_ITS ---
APPROVED REPORT Exam: Exercise Treadmill Technologist: Hollie Chatman, Ht: 5 ft 8 in Wt: 166 lbs BSA: 1.89 m2 HR: 99 bpm BP: 140/78 mmHg Rhythm: NSR Medical History Medications: Lisinopril,,,,, Atorvastatin,,,,, Stress Test Details Test: Lux HR Resting HR: 114 bpm Max Heart Rate (APMHR): 152 bpm Max HR Achieved: 162 bpm Target HR (85% APMHR): 129 bpm % of APMHR: 107 Recovery HR: 108 bpm HR response to stress: Normal HR response to stress BP Resting BP: 115.0/82.0 mmHg Max BP: 148.0/74.0 mmHg Recovery BP: 125.0/72.0 mmHg BP response to stress: Normal blood pressure response to stress. ECG Resting ECG: Sinus tachycardia, rightward axis Stress ECG: < 0.[address] depression Arrhythmia: Occasional PVCs, PVCs PACs, Recovery ECG: Return to baseline within 3 minutes of recovery Recovery Arrhythmia: None Clinical Exercise duration: 04:30 min Highest Stage Achieved: II Exercise capacity: 7.0 METs Overall Exercise Capacity for Age: Average Stress ECG Conclusion The patient was able to walk for a total of 4 minutes, 30 seconds. He achieved a total of 7 METS. He has average exercise capacity compared to age and sex matched peers. He has normal HR and BP response to exercise. Max HR: 162 % of PM: 107% Max BP: 148/74 METs: 7.0 Test stopped due to: SOA Symptoms: No CP. Arrhythmias/Ectopy: Occasional PACs, PVCs ST-T Changes: Normal ST response to exercise. Conclusion: Normal GXT. Average exercise tolerance. GXT only (no imaging) Test Summary REST . . . . . . . Sitting REST . . . . . . . Standing REST 03:20 0.0 0.0 114 . 115/ 82 . . Stage 1 01:00 10.0 1.7 130 . . . . Stage 1 02:00 10.0 1.7 145 . . . . Stage 1 03:00 10.0 1.7 149 . 148/ 74 . . Stage 2 01:00 12.0 2.5 158 . . . . Stage 2 01:30 12.0 2.5 161 . . . Stop exercise at 04:30 RECOVERY 01:00 0.0 0.0 153 . . . . RECOVERY 02:00 0.0 0.0 124 . . . . RECOVERY 03:00 0.0 0.0 115 . 143/ 74 . . RECOVERY 04:00 0.0 0.0 111 . 133/ 72 . . RECOVERY 05:00 0.0 0.0 108 . 125/ 72 . . RECOVERY 05:17 0.0 0.0 108 . 125/ 72 . . Electronically signed by : Juliana Blum MD 04/10/2023 13:20:29
== END ==
PROVIDERS: PCP Emergency Medicine; Visit Provider Physician Assistant
DX: R01.1 Cardiac murmur, unspecified (principal); R09.89 Other specified symptoms and signs involving the circulatory and respiratory systems; I10 Essential (primary) hypertension; E78.5 Hyperlipidemia, unspecified; R42 Dizziness and giddiness; R55 Syncope and collapse; R06.02 Shortness of breath
CPT/HCPCS: 93017; 93018

== ENCOUNTER → 2023-04-07 10:10 | Outpatient (CLI) | payer MEDICARE, SELFPAY ==
--- NOTE | 2023-04-07 10:11 | CA_ITS ---
APPROVED REPORT EXAM: Comprehensive 2D, Doppler, and color-flow Echocardiogram Soils Analyst: Jeannie Newton RVT Ht: 5 ft 8 in Wt: 166lbs BSA: 1.89 BP: 142/86 mmHg Indications: MURMUR,HTN,HLD 2D Dimensions LVOT 2.23 cm (M/F) 1.5-2.5 LA Volume 29.60 mL LA Volume Index 15.66 mL/m2 (M/F) 16-34 M-Mode Dimensions RVDd 3.00 cm (0.9-2.6) LA Diam 2.98 cm (1.9-4.0) LVDd 5.07 cm (3.5-5.7) Ao Diam 3.89 cm (2.0-3.7) LVDs 3.18 cm (3.5-5.7) IVSd 1.28 cm (0.6-1.1) PWd 0.71 cm (0.6-1.1) EF (Teich) 67.00% FS 37.30% EDV (Teich) 122.10 mL TAPSE 1.98 (<1.7) ESV (Teich) 40.30 mL LV Diastology E Decel Time 263.00 (160-240 msec) E/A Ratio 0.7 MED E' 6.00 (< 7 cm/sec) E'/MED E' Ratio 10.35 (>14) LAT E' 8.40 (<10 cm/sec) E/LAT E' Ratio 7.39 (>14) Aortic Valve LVOT Max 92.00 (70-110 cm/s) LVOT VTI 16.57 cm AoV Peak Fermín. 98.00 (50-130 cm/s) AO Peak GR. 3.90 mmHg AO Mean GR. 2.40 (<5 mmHg) AO VTI 17.05 (18-25 cm) LATRICE (VTI) 3.80 (2.5-4.5 cm2) Mitral Valve MV E Max Fermín. 62.00 (40-130 cm/s) MV A Velocity 85.00 (40-130 cm/s) E/A Ratio 0.73 MV Decel. Time 263.00 (160-240 ms) MV PHT 77.00 ms Pulmonary Valve PV Peak Velocity 95.00 (50-150 cm/s) Tricuspid Valve TR P. Velocity 269.00 cm/s RAP Estimate 10.00 mmHg RVSP 38.90 mmHg Left Ventricle The left ventricle is normal size. The left ventricular systolic function is normal. The left ventricular ejection fraction is within the normal range. There is increased LV wall thickness. There is normal LV segmental wall motion. The left ventricular diastolic function is normal. LVEF is 55%. Right Ventricle The right ventricle is normal size. The right ventricular systolic function is normal. Atria The left atrium size is normal. The right atrium size is normal. There is no Doppler evidence of interatrial shunt. Aortic Valve The aortic valve opens well. There is no aortic valvular stenosis. No aortic regurgitation is present. Mitral Valve The mitral valve is normal in structure. No evidence of mitral valve stenosis. Mild mitral regurgitation. Tricuspid Valve The tricuspid valve leaflets are thin and pliable. Mild tricuspid regurgitation. RVSP is 30-35 mmHg. Pulmonic Valve The pulmonary valve is normal in structure. Trace pulmonic regurgitation. Great Vessels The aortic root is normal in size. The ascending aorta is normal in size. IVC is normal in size and collapses >50% with inspiration. Pericardium There is no pericardial effusion. Other Information Study Quality: Fair Conclusion Normal biventricular systolic function. Mild MR, mild TR. RVSP is 30-35 mmHg. Electronically signed by : Juliana Blum MD 04/14/2023 19:08:34
[2023-04-07 11:03] LABS: Basophils % 0.4 % (0.1-2.0); Eosinophils # 0.3 K/mm3 (0.0-0.4); Hematocrit 42.5 % (42.0-52.0); Lymphocytes # 1.4 K/mm3 (0.7-4.5); Lymphocytes % 22.5 % (10-50); Mean Corpuscular Hemoglobin 30.6 pg (27.0-31.2); Mean Corpuscular Volume 92.7 fl (80-94); Mean Platelet Volume 7.5 fl (7.4-10.4); Monocytes # 0.5 K/mm3 (0.1-1.0); Monocytes % 7.3 % (1.7-9.3); Neutrophils # 4.1 K/mm3 (1.8-7.8); Neutrophils % 65.8 % (37.0-80.0); Platelet Count 232 K/mm3 (142-424); Red Blood Count 4.59 M/mm3 (4.60-6.20); Red Cell Distribution Width 12.9 % (11.5-17.5); White Blood Count 6.3 K/mm3 (4.8-10.8)
[2023-04-07 11:59] LABS: Alanine Aminotransferase 21 U/L (12-78); Alkaline Phosphatase 59 U/L (38-126); Aspartate Amino Transferase 32 U/L (17-59); Bilirubin,Total 0.6 mg/dl (0.2-1.3); Blood Urea Nitrogen 16 mg/dl (9-20); Calcium 8.9 mg/dl (8.4-10.2); Carbon Dioxide 30 mmol/L (22.0-30.0); Chloride 99 mmol/L (98-107); Chol/HDL Ratio 3.8 (1-3.5); Cholesterol 160 mg/dl (140-200); Estimated Glomerular Filt Rate 96 ml/min (>60); GFR (African American) 116 ML/MIN (>60); Glucose 99 mg/dl (74-100); HDL Cholesterol 42 mg/dl (40-60); Triglycerides 47 mg/dl (30-150); VLDL Cholesterol 9 mg/dL (0-40)
[2023-04-07 12:00] LABS: Albumin Level 4.3 g/dl (3.5-5.0); Albumin/Globulin Ratio 1.4 (1.1-1.8); Anion Gap 9.2 mEq/L (5-15); Globulin 3.1 g/dL (1.3-3.2); Potassium 4.2 mmoL/L (3.5-5.1); Sodium 134 mmol/L (136-145); Total Protein,Serum 7.4 g/dl (6.3-8.2)
[2023-04-07 12:10] LABS: Direct LDL Cholesterol 97.01 mg/dL (100-129)
[2023-04-07 12:17] LABS: 25-OH Vitamin D, Total 29.2 ng/mL (30-100)
[2023-04-07 12:30] LABS: Thyroid Stimulating Hormone 0.33 uIU/mL (0.465-4.68)
== END ==
PROVIDERS: PCP Emergency Medicine; Visit Provider Emergency Medicine
DX: R01.1 Cardiac murmur, unspecified (principal); E78.5 Hyperlipidemia, unspecified; I10 Essential (primary) hypertension; E55.9 Vitamin D deficiency, unspecified; Z68.25 Body mass index [BMI] 25.0-25.9, adult
CPT/HCPCS: 36415; 80053; 80061; 82306; 84439; 84443; 85025; 93306

== ENCOUNTER → 2023-04-24 07:54 | Outpatient (CLI) | payer MEDICARE, SELFPAY ==
--- NOTE | 2023-04-24 07:55 | MR_ITS ---
FINAL REPORT CLINICAL HISTORY: dizziness COMPARISON: None FINDINGS: Multiplanar MR imaging of the brain was performed without and with contrast. There is no evidence of intracranial hemorrhage or mass. No abnormal extra-axial fluid collection is seen. The ventricular size is within normal limits. There is no evidence of shift of the midline structures. The posterior fossa and brainstem have an unremarkable appearance. No area of abnormal restricted diffusion is identified. No abnormal contrast enhancement is seen. Normal major vessel vascular flow voids are noted. There is minimal mucoperiosteal thickening in the left maxillary sinus. IMPRESSION: No acute intracranial abnormality identified. Reviewed, Interpreted and Dictated by Germain Yun MD Transcribed by Talia Lala Authenticated and [facility]
== END ==
PROVIDERS: PCP Physician Assistant; Visit Provider Emergency Medicine
DX: R42 Dizziness and giddiness (principal)
CPT/HCPCS: 70553; A9576

== ENCOUNTER 2023-05-17 16:52 | Outpatient (CLI) | payer MEDICARE, SELFPAY ==
[2023-05-17 13:42] LABS: Alanine Aminotransferase 20 U/L (12-78); Albumin Level 4.2 g/dl (3.5-5.0); Albumin/Globulin Ratio 1.3 (1.1-1.8); Alkaline Phosphatase 56 U/L (38-126); Aspartate Amino Transferase 31 U/L (17-59); Bilirubin,Total 0.8 mg/dl (0.2-1.3); Blood Urea Nitrogen 18 mg/dl (9-20); Calcium 8.8 mg/dl (8.4-10.2); Carbon Dioxide 28 mmol/L (22.0-30.0); Chloride 100 mmol/L (98-107); Estimated Glomerular Filt Rate 84 ml/min (>60); GFR (African American) 102 ML/MIN (>60); Globulin 3.2 g/dL (1.3-3.2); Glucose 109 mg/dl (74-100); Potassium 4.4 mmoL/L (3.5-5.1); Total Protein,Serum 7.4 g/dl (6.3-8.2)
[2023-05-17 13:56] LABS: Anion Gap 10.4 mEq/L (5-15); Sodium 134 mmol/L (136-145)
[2023-05-17 14:01] LABS: Free Thyroxine Index 2.5 ug/dL (5.93-13.13); Triiodothryronine (T3) Uptake 36 % (23.5-40.5)
[2023-05-17 14:15] LABS: Thyroid Stimulating Hormone 0.63 uIU/mL (0.465-4.68)
== END 2023-05-17 23:59 ==
LOC: LAB.DROPOF 16:53
PROVIDERS: PCP Physician Assistant; Visit Provider Family Medicine
DX: R53.83 Other fatigue (principal); R55 Syncope and collapse
CPT/HCPCS: 80053; 84436; 84443; 84479

== ENCOUNTER 2023-08-08 13:35 | Outpatient (POV) | payer MEDICARE, SELFPAY | END 2023-08-08 23:59 | disposition home or self-care (01) | LOC: SC 13:36 | PROVIDERS: PCP Family Medicine; Visit Provider Dermatology | DX: Z00.00 Encounter for general adult medical examination without abnormal findings (principal) ==

== ENCOUNTER 2024-05-16 09:02 | Outpatient (CLI) | payer MEDICARE, SELFPAY ==
[2024-05-16 18:41] LABS: Basophils % 0.7 % (0.1-2.0); Eosinophils # 0.3 K/mm3 (0.0-0.4); Eosinophils % 5.8 % (0.1-12.0); Hematocrit 41.5 % (42.0-52.0); Hemoglobin 13.7 g/dL (14.1-18.0); Lymphocytes # 1.5 K/mm3 (0.7-4.5); Lymphocytes % 25.9 % (10-50); Mean Platelet Volume 9.5 fl (7.4-10.4); Monocytes # 0.6 K/mm3 (0.1-1.0); Monocytes % 11.1 % (1.7-9.3); Neutrophils # 3.2 K/mm3 (1.8-7.8); Neutrophils % 56.3 % (37.0-80.0); Platelet Count 244 K/mm3 (142-424); Red Blood Count 4.56 M/mm3 (4.60-6.20); Red Cell Distribution Width 12.5 % (11.5-17.5); White Blood Count 5.7 K/mm3 (4.8-10.8)
[2024-05-16 19:00] LABS: Hemoglobin A1C 5.5 % (4.0-6.0)
[2024-05-16 19:11] LABS: Alanine Aminotransferase 17 U/L (12-78); Albumin Level 4.4 g/dl (3.5-5.0); Albumin/Globulin Ratio 1.5 (1.1-1.8); Alkaline Phosphatase 48 U/L (38-126); Anion Gap 12.6 mEq/L (5-15); Aspartate Amino Transferase 30 U/L (17-59); Bilirubin,Total 0.8 mg/dl (0.2-1.3); Blood Urea Nitrogen 20 mg/dl (9-20); Calcium 9.6 mg/dl (8.4-10.2); Carbon Dioxide 28 mmol/L (22.0-30.0); Chloride 99 mmol/L (98-107); Chol/HDL Ratio 3.4 (1-3.5); Cholesterol 154 mg/dl (140-200); Estimated Glomerular Filt Rate 84 ml/min (>60); GFR (African American) 101 ML/MIN (>60); Glucose 99 mg/dl (74-100); HDL Cholesterol 45 mg/dl (40-60); Potassium 4.6 mmoL/L (3.5-5.1); Sodium 135 mmol/L (136-145); Total Protein,Serum 7.4 g/dl (6.3-8.2); Triglycerides 48 mg/dl (30-150); VLDL Cholesterol 10 mg/dL (0-40)
[2024-05-16 19:21] LABS: Direct LDL Cholesterol 92.89 mg/dL (100-129)
[2024-05-16 19:31] LABS: 25-OH Vitamin D, Total 33.5 ng/mL (30-100)
[2024-05-16 19:41] LABS: Prostate Specific Ag Screen 1.8 ng/ml (0.0-4.0); Thyroid Stimulating Hormone 1.01 uIU/mL (0.465-4.68)
== END 2024-05-16 23:59 | disposition home or self-care (01) ==
LOC: LAB.DROPOF 05-18 08:22
PROVIDERS: PCP Family Medicine; Visit Provider Family Medicine
DX: Z12.5 Encounter for screening for malignant neoplasm of prostate (principal); E55.9 Vitamin D deficiency, unspecified; E78.5 Hyperlipidemia, unspecified; R73.03 Prediabetes; I10 Essential (primary) hypertension; E78.2 Mixed hyperlipidemia
CPT/HCPCS: 80053; 80061; 82306; 83036; 84443; 85025; G0103

== ENCOUNTER 2025-04-30 08:34 | Outpatient (CLI) | payer MEDICARE, SELFPAY ==
[2025-04-30 14:52] LABS: Hematocrit 41.5 % (42.0-52.0); Hemoglobin 13.6 g/dL (14.1-18.0); Immature Granulocytes % 0.3 %; Mean Corpuscular HGB Conc 32.8 g/dL (31.8-35.4); Mean Corpuscular Hemoglobin 29.6 pg (27.0-31.2); Mean Corpuscular Volume 90.4 fl (80-94); Nucleated Red Blood Cells % 0 %; Platelet Count 270 K/mm3 (142-424); Red Blood Count 4.59 M/mm3 (4.60-6.20); Red Cell Distribution Width-SD 40.8 fL; White Blood Count 6.2 K/mm3 (4.8-10.8)
[2025-04-30 15:03] LABS: Alanine Aminotransferase 17 U/L (12-78); Albumin Level 4.5 g/dl (3.5-5.0); Albumin/Globulin Ratio 1.3 (1.1-1.8); Alkaline Phosphatase 59 U/L (38-126); Anion Gap 13.1 mEq/L (5-15); Aspartate Amino Transferase 29 U/L (17-59); Bilirubin,Total 0.9 mg/dl (0.2-1.3); Blood Urea Nitrogen 21 mg/dl (9-20); Calcium 9.7 mg/dl (8.4-10.2); Carbon Dioxide 25 mmol/L (22.0-30.0); Chloride 102 mmol/L (98-107); Creatinine,Serum 1.00 mg/dl (0.66-1.25); Estimated Glomerular Filt Rate 74 ml/min (>60); GFR (African American) 89 ML/MIN (>60); Globulin 3.6 g/dL (1.3-3.2); Glucose 103 mg/dl (74-100); Potassium 5.1 mmoL/L (3.5-5.1); Sodium 135 mmol/L (136-145); Total Protein,Serum 8.1 g/dl (6.3-8.2)
--- OUTSIDE RECORDS SUMMARY | 2025-04-30 20:09 | XMS_ITS | Data Portability ---
Author Organization [place] [facility] [place] [facility] [place] [facility] Address [address] [place] [address] Care Team Providers Care Top Collar Baster Name Role Phone JAMI THOMASON Primary Care Provider [phone] Assessment No assessment recorded. Plan of Treatment Reminders Order Date Submit Date Provider Last Modified By Organization Details Last Modified Time Details Appointments None recorded. Lab urinalysis panel, auto 2021 022 [facility] Extended [facility] With [facility], [address], [address], [place], [address], 07:31:31 Referral None recorded. Procedures None recorded. Surgeries None recorded. Imaging None recorded. Medication Orders None recorded. Patient TargetsNo targets recorded. Patient Instructions Encounter Date Encounter Id Patient Instructions Last Modified By Organization Details Last Modified Time 06/21/2021 [id number] learning about healthy weight [email or web address] Not available 06/23/2021 07:31:30 at this point I recommend yearly follow-up with digital rectal exam and PSA. I reassured the patient is fluid collection in the right groin is likely postoperative in nature and is not sinister. [email or web address] Not available 06/23/2021 07:31:50 Reason for Referral None Reported. Results Created Date Observation Date Name Description Value Unit Range Abnormal Flag Note LastModifiedBy Organization Detail LastModifiedTime 06/21/19 22 06/21/2021 urina lysis panel , auto Unknown Analyte Clean Catch Not Available [facility] [address], [place], [address], 06/21/2021 15:08:20 06/21/19 22 06/21/2021 urina lysis panel , auto Unknown Analyte Yellow Not Available [facility] [place] [address], [place], [address], 06/21/2021 15:08:20 06/21/19 22 06/21/2021 urina lysis panel , auto Unknown Analyte Clear Not Available [facility] Extended Services With [address], [place], [address], 06/21/2021 15:08:20 06/21/19 22 06/21/2021 urina lysis panel , auto Unknown Analyte 1.005 Not Available [facility] Extended Services With [address], [place], [address], 06/21/2021 15:08:20 06/21/19 22 06/21/2021 urina lysis panel , auto Unknown Analyte 1.003- 1.035 Not Available [facility] Extended Services With [place] [address], [place], [address], 06/21/2021 15:08:20 06/21/19 22 06/21/2021 urina lysis panel , auto Unknown Analyte 7.0 Not Available [facility] Extended Services With [address], [place], [address], 06/21/2021 15:08:20 06/21/19 22 06/21/2021 urina lysis panel , auto Unknown Analyte 5.0-8. 0 Not Available [facility] Extended Services With [address], [place], [address], 06/21/2021 15:08:20 06/21/19 22 06/21/2021 urina lysis panel , auto Unknown Analyte 25 Jackie/ul Trace Not Available [facility] Extended Services With [place] [address], [place], [address], 06/21/2021 15:08:20 06/21/19 22 06/21/2021 urina lysis panel , auto Unknown Analyte Negati ve Not Available [facility] Extended Services With [place] [address], [place], [address], 06/21/2021 15:08:20 06/21/19 22 06/21/2021 urina lysis panel , auto Unknown Analyte Negati ve Not Available [facility] [place] [facility] With [address], [place], [address], 06/21/2021 15:08:20 06/21/19 22 06/21/2021 urina lysis panel , auto Unknown Analyte Negati ve Not Available [facility] Extended Services With [place] [address], [place], [address], 06/21/2021 15:08:20 06/21/19 22 06/21/2021 urina lysis panel , auto Unknown Analyte Negati ve Not Available [facility] Extended Services With [address], [place], [address], 06/21/2021 15:08:20 06/21/19 22 06/21/2021 urina lysis panel , auto Unknown Analyte Negati ve Not Available [facility] Extended Services With [address], [place], [address], 06/21/2021 15:08:20 06/21/19 22 06/21/2021 urina lysis panel , auto Unknown Analyte Normal Not Available [facility] Extended Services With [place] [address], [place], [address], 06/21/2021 15:08:20 06/21/19 22 06/21/2021 urina lysis panel , auto Unknown Analyte Normal Not Available [facility] Extended Services With [place] [address], [place], [address], 06/21/2021 15:08:20 06/21/19 22 06/21/2021 urina lysis panel , auto Unknown Analyte Negati ve Not Available [facility] Extended Services With [address], [place], [address], 06/21/2021 15:08:20 06/21/19 22 06/21/2021 urina lysis panel , auto Unknown Analyte Negati ve Not Available [facility] Extended Services With [place] [address], [place], [address], 06/21/2021 15:08:20 06/21/19 22 06/21/2021 urina lysis panel , auto Unknown Analyte Normal Not Available [facility] Extended Services With [place] [address], [place], [address], 06/21/2021 15:08:20 06/21/19 22 06/21/2021 urina lysis panel , auto Unknown Analyte Normal 1 mg/dl Not Available [facility] Extended Services With [place] [address], [place], [address], 06/21/2021 15:08:20 06/21/19 22 06/21/2021 urina lysis panel , auto Unknown Analyte Negati ve Not Available [facility] [place] [facility] With [facility] [address], [place], [address], 06/21/2021 15:08:20 06/21/19 22 06/21/2021 urina lysis panel , auto Unknown Analyte Negati ve Not Available [facility] [place] [facility] With [facility] [address], [place], [address], 06/21/2021 15:08:20 06/21/19 22 06/21/2021 urina lysis panel , auto Unknown Analyte Negati ve Not Available [facility] [place] [facility] With [facility] [address], [place], [address], 06/21/2021 15:08:20 06/21/19 22 06/21/2021 urina lysis panel , auto Unknown Analyte Negati ve Not Available [facility] [place] [facility] With [facility] [address], [place], [address], 06/21/2021 15:08:20 07/30/19 22 05/26/2021 CT, chest + abdom en + pelvi s, w/ contr ast No observ ation record ed. BARCODE Not Available 2021 12:11:29 Result Notes None recorded. Problems Name Problem SNOMED Code Status Onset Date Resolution Date Notes Provider Name and Address Organization Details Recorded Time Intra-abdomin al collection 148628280 Active 2021 MONE STORM JR, MD [address] [place] [address], [phone] [place] [address] 07:31:28 Benign prostatic hyperplasia without outflow obstruction 859694334 Active 2021 MONE STORM JR, MD [address] [place] [address], [address], [facility] 07:31:29 Problem Notes None recorded. Procedures Surgical History Date Name Laterality Status Provider Name and Address Organization Details Recorded Time Hernia Repair completed Nandini Fletcher [facility] 06/21/2021 15:07:40 Imaging Results None recorded. Procedure Notes None recorded. Medical Equipment None Reported. Allergies No known drug allergies Medications Name Sig Start Date Stop Date Status Note LastModified by Organization Details LastModified Time atorvastatin 10 mg tablet Take 1 tablet every day by oral route. active Not Available Not Available No t Available Metamucil active Not Available Not Sonali ilable Not Available Vitals Date Recorded Body height Body mass index (BMI) Body weight Provider Name and Address Organization Details Last Updated DateTime 06/21/2021 175.26 cm 22.6 kg/m2 86289.63 g Nandini Fletcher [facility] 06/21/2021 15:05:40 Social History Question Answer Notes LastModified by Organizat ion Details LastModified Time Tobacco Smoking Status Never Smoker Nandini Fletcher [facility] 06/21/2021 15:07:18 What Was The Date Of Your Most Recent Tobacco Screening? 06/21/2021 Information not available 06/21/2021 What Is Your Relationship Status? Single Information not available 06/21/2021 Sex: Unknown Functional Status Question Answer Note LastModified by Organization D etails LastModified Time What is your level of alcohol consumption? None Information not available 06/21/2021 Mental Status None recorded. Family History Relationship Description Onset Age of this Age Resolved Age Notes LastModified by Organization Details LastModified Time Mother Diabetes mellitus Not available 2021 15:06:35 Mother Kidney disease Not available 2021 15:06:54 Medical History No medical history recorded. Past Encounters Encounter ID Performer Location Encounter Start Date Encounter Closed Date Diagnosis/Indication Diagnosis SNOMED-CT Code Diagnosis ICD10 Code Diagnosis IMO Codes Diagnosis Note [id number] MD [facility] [address] [facility] [address] [place] [address] 06/21/2021 14:49:28 06/22/2021 15:11:50 Benign prostatic hyperplasia without outflow obstruction 420535594 N40.0 Intra-abdo amy collection 376330859 R19.8 Health Concerns Section Related Observation LastModified by Organization Detai ls LastModified Time None Recorded Concern Status LastModified by Organization Details LastModified Time None Recorded Advance Directives Directive None Recorded Payers Insurance Date Sequence Insurance Name Policy Number Policy Rice Covered Member ID Rice Member ID Guarantor Name 06/22/2021 1 [place]ARE[place] Darien Turknes [id number] Darien Liu Adrian 07/14/2021 2 [employer] - [employer] J (MEDICARE SUPPLEMENT) Darien Liu Adrian 06/29/2021 2 [employer] (MEDICARE SUPPLEMENT) Darien Turknes [id number] Darien A Adrian Notes Date Note Type Note Provider Name and Address Organization Details Recorded Time 06/21/2021 text/html patient is in today for evaluation. A pleasant 66-year-old gentleman who was recently evaluated with CT scan of the abdomen and pelvis with contrast May 26, 2021. Significant findings show fluid collection, postoperative in the right inguinal region following hernia repair. Mild prostate enlargement. Patient denies any particular symptoms. His hernia repair was in December. He denies any significant lower urinary tract symptoms. He has never been treated for BPH with medication or surgery. He denies any episodes of UTI or prostatitis. He denies hematuria and dysuria. PSA 1. 14 November 2020 MONE STORM JR, MD [address] [place] [address], [address], [facility] 06/23/2021 07:32:09
== END 2025-04-30 23:59 | disposition home or self-care (01) ==
LOC: LAB.DROPOF 20:01
PROVIDERS: PCP Student in an Organized Health Care Education/Training Program; Visit Provider Family Medicine
DX: D64.9 Anemia, unspecified (principal); E87.1 Hypo-osmolality and hyponatremia
CPT/HCPCS: 80053; 85025